=== PATIENT | female | born 1945 | race Caucasian/White ===

== ENCOUNTER 2025-03-17 19:31 | Emergency (ER) | payer MEDICARE, BC, SELFPAY ==
[2025-03-17] VITALS (11 sets, daily range): BP systolic 83–102; BP diastolic 39–79
[2025-03-17] MEDS: NSS 1000 IV (20:00)
[2025-03-17 20:04] LABS: Hematocrit 32.2 % (37.0-47.0); Hemoglobin 10.5 g/dL (12.0-16.0); Mean Corp Hgb Conc. 32.6 g/dL (33.0-37.0); Mean Corpuscular Volume 93.6 fL (81.0-99.0); Nucleated Red Blood Cells % 0 %; Platelet Count 235 10^3/uL (130-400); Red Cell Dist. Width 13.9 % (11.5-14.5)
[2025-03-17 20:14] LABS: INR 1.51; PT 18.8 Sec (11.4-14.6)
[2025-03-17 20:15] LABS: APTT 43.3 Sec (23.4-35.0)
[2025-03-17 20:25] LABS: ALT (SGPT) 12 U/L (0-35); AST (SGOT) 21 U/L (14-36); Acetaminophen 10 ug/ml (10-30); Albumin 4.2 g/dl (3.5-5.0); Alkaline Phosphatase 215 U/L (38-126); Blood Urea Nitrogen 33 mg/dl (7-17); Calcium 9.0 mg/dl (8.4-10.2); Carbon Dioxide 26 mmol/L (22-30); Chloride 104 mmol/L (98-107); Glucose 138 mg/dl (70-99); Potassium 4.5 mmol/L (3.5-5.1); Salicylate < 1.0 mg/dl (2.0-20.0); Sodium 139 mmol/L (135-145); Total Protein 6.8 g/dl (6.3-8.2); eGFR 45.48
--- NOTE | 2025-03-17 22:01 | PHANOTE ---
Addendum entered by Ana Brock 03/18/25 08:24:
CALLED PATIENT DOCTOR AT [phone] AND [facility] FOR MEDICATION LIST
Original Note:
med rec note- patient does not know her medication, patient currently seeing a new therapy doctor. spouse does not know patient medication, daughter with patient but have an older list but medication have changed
[2025-03-17 22:16] LABS: Acetaminophen < 10 ug/ml (10-30)
--- NOTE | 2025-03-17 23:06 | ED.GENMED ---
History of Present Illness
General
Chief Complaint: Overdose Intentional
Source: patient and family
Exam Limitations: none
Time Seen by Provider: 03/17/25 19:37
Nursing documentation reviewed up to this point in time: agreed with
History of Present Illness
History of Present Illness:
Note:
CHIEF COMPLAINT(S)
Suspected medication overdose and suicidal ideation.
HISTORY OF PRESENT ILLNESS
The patient is an 78-year-old female who was evaluated for a suspected intentional overdose. Upon arrival, It was found that she had taken six tablets of acetaminophen with codeine (brand name Tylenol with Codeine 3) and an unspecified amount of
alprazolam. When asked, the patient confirmed that she took these medications with the intent to harm herself. The patient expressed a desire not to live, attributable to recent emotional distress related to her , though she denied any
physical abuse by him. She verbally communicated that she did not want life-saving interventions, but was informed that her stated do not resuscitate order was not applicable under the circumstances of a suicide attempt.
CHRONIC MEDICAL CONDITIONS SIGNIFICANTLY AFFECTING CARE
The presence of psychiatric distress is noted in the context of this patients presentation, indicated by her actions and verbal expression of suicidal ideation.
SOCIAL DETERMINANTS AFFECTING HEALTH
The patient is experiencing significant emotional distress related to her relationship with her , which has contributed to her current mental health crisis. There are no indications of physical abuse, but she does not wish to live, and this
desire is concerning for her overall well-being.
PHYSICAL EXAM
- Nursing notes reviewed and vital signs reviewed.
PLAN
- Perform blood work to assess the extent of medication intake and its effects.
- Conduct comprehensive testing to evaluate patient�s current physiological and psychological state.
- Provide appropriate medical intervention despite patient�s stated do not resuscitate order due to the intent to harm herself.
DIFFERENTIAL DIAGNOSIS
The Differential Diagnosis includes, in no particular order and is not limited to:
1. Intentional medication overdose
2. Major depressive disorder
3. Adjustment disorder with depressed mood
4. Acute stress reaction
5. Substance use disorder
6. Drug toxicity
7. Anxiety disorder
8. Bipolar disorder
CARE-UPDATE
03/17/25 - 19:54
Patient likely had an overdose around 5:30 p.m., as indicated by the daughters observations. The patient sent a concerning text about distributing her wealth, prompting the daughter to call 911. The patient reports a toxic relationship with her
and prefers that he does not visit her room currently, a decision with which the daughter agrees.
Disposition:
SUMMARY OF ENCOUNTER
The patient, an 78-year-old female, presented to the emergency department for a suspected intentional overdose involving acetaminophen with codeine and alprazolam. She expressed suicidal ideation linked to emotional distress with her ,
although she denied any physical abuse. Her do not resuscitate order was not honored due to the circumstances of an attempted suicide. Medical intervention was provided to ensure her safety and wellness. Her physical and psychological assessment was
carried out, and lab work was done to determine the extent of the overdose. Acetaminophen levels returned negative. The patient is medically cleared for transfer to a psychiatric facility. She is voluntarily agreeing to this placement and remains
fully cooperative throughout the assessment.
DISPOSITION
Transfer to psychiatric facility for further management.
ASSESSMENT
Intentional medication overdose, suicidal ideation with underlying major depressive disorder likely exacerbated by relational distress.
PLAN
Transfer the patient to a psychiatric facility for further evaluation and management of her mental health status. Despite her wish to not receive life-saving interventions, due to the nature of the attempted suicide, interventions were necessary for
patient safety.
MEDICAL DECISION MAKING
-Complexity of Data Reviewed: Chronic conditions affecting care with suspected intentional medication overdose, major depressive disorder, adjustment disorder with depressed mood, acute stress reaction, substance use disorder, drug toxicity, anxiety
disorder, bipolar disorder, chronic pain management issues, personality disorder.
-Data:
Category 1: Tests and documents reviewed. Acetaminophen levels were checked and were negative.
Category 2: Managed and discussed for voluntary placement in a psychiatric facility.
DIAGNOSIS
1. Intentional medication overdose, unspecified drugs, T50.901A
2. Major depressive disorder, single episode, unspecified, F32.9
These diagnoses reflect both the immediate concerns and the underlying mental health issue requiring psychiatric intervention.
Review of Systems
Review of Systems
Allergies reviewed?: Yes
Other source history: family
All Other Systems: Not applicable
Psychiatric: Reports depression, anxiety and suicidal
Phy Exam
General Physical Exam
General Presentation: well appearing and no apparent distress
General Skin: warm and dry
General Habitus: normal
General Mental: alert
General Hydration: appears well hydrated
ENT Exam
ENT Exam: EOMI, pharynx normal, neck supple and normocephalic
Eye Exam
Eye Exam: PERRL, cornea clear and conjunctiva normal
Cardiovascular Exam
Cardiovascular Exam: regular rate/rhythm, no edema, no murmur and normal peripheral pulses
Pulmonary Exam
Pulmonary Exam: lungs clear, no respiratory distress, no rales, no crackles, no rhonchi, no stridor, no wheezing and no cough
Gastrointestinal Exam
Gastrointestinal Exam: normal bowel sounds, non tender, soft, no organomegaly, no pulsatile mass and non distended
Neurological Exam
Neurological Exam: alert, oriented x3, no motor deficits and speech normal
Musculoskeletal Exam
Musculoskeletal Exam: full ROM and no edema
Skin Exam
Skin Exam: normal color, warm/dry, no rash and no petechia
Psychiatric Exam
Psychiatric Exam: depressed and suicidal
Course
Orders/Labs/Results
Orders:
Orders
03/17/25 19:38
Electrocardiogram (*1) Stat
Reason for Study: Other
Other Reason for Exam: overdose
Crisis Consult Urgent
Reason for Consult: suidicde attempt by overdose
Bedside Glucose- Treatment ONCE
Cardiac Monitoring- Treatment ONCE
EKG- Treatment ONCE
Urinalysis Reflex To Culture Urgent
Urine Drug Abuse Screen Urgent
0.9% Sodium Chloride 1000 ml [Nss] 1,000 ml IV BOLUS
CR Chest - 2 Views Urgent
Comment:
Reason For Exam: overdose
03/17/25 19:55
Acetaminophen Urgent
Alcohol Urgent
Complete Blood Count/With Diff Urgent
Comprehensive Metabolic Panel Urgent
PTT Urgent
Prothrombin Time Urgent
Salicylate Urgent
03/17/25 21:44
Acetaminophen Urgent
Comment: repeat
Abnormal Lab Results
03/17/25 03/17/25
19:55 21:44
RBC 3.44 L 10^6/uL
(4.20-5.40)
Hgb 10.5 L g/dL
(12.0-16.0)
Hct 32.2 L %
(37.0-47.0)
MCHC 32.6 L g/dL
(33.0-37.0)
MPV 10.6 H fL
(7.4-10.4)
PT 18.8 H Sec
(11.4-14.6)
APTT 43.3 H Sec
(23.4-35.0)
BUN 33 H mg/dl
(7-17)
Creatinine 1.2 H mg/dL
(0.6-1.0)
Glucose 138 H mg/dl
(70-99)
Alkaline Phosphatase 215 H U/L
(38-126)
Salicylates < 1.0 L mg/dl
(2.0-20.0)
Acetaminophen < 10 L ug/ml
(10-30)
03/17/25 19:55
03/17/25 19:55
Vital Signs
Initial and Last Documented VS:
Initial Vital Signs
Temp Pulse Resp
98.3 F 62 16
03/17/25 19:38 03/17/25 19:38 03/17/25 19:38
Last Documented Vital Signs
Temp Pulse Resp BP Pulse Ox
98.3 F 60 16 91/49 96
03/17/25 19:38 03/17/25 21:15 03/17/25 21:15 03/17/25 21:00 03/17/25 23:10
*Radiology
Radiology exam reviewed: radiology read reviewed
*Pulse Oximetry
SaO2: 96
Oxygen Mode of Delivery: Room air
Patient hypoxic: no
*EKG
Interpreted by ED Provider?: Yes
EKG Intrepretation Date: 03/17/25
Comparison EKG: no comparison EKG present
Heart Rate: 63
Rhythm: ventricular paced
Nenzel: left axis deviation
*Insurance Sales Supervisor Interpretation
Rate: normal
Rhythm: ventricular paced
*Critical Care Note
Total Time (30-74mins, 75-104mins- exclusive of procedures): Critical care statement: (35)
ED Attending Note
-
Portions of this chart may have been created with voice recognition software.� Occasional wrong word or��sound alike� substitutions may have occurred due to the inherent limitations of voice recognition software.
Discharge Plan
Departure
Patient Disposition: Psych Facility
Date of Disposition: 03/17/25
Time of Disposition: 23:09
Patient Status:: 201
Discharge Problem:
Suicide attempt
Prescriptions:
No Action
buspirone [BuSpar] 5 mg Tablet
5 mg PO BID
sennosides [senna] 8.6 mg Tablet
8.6 mg PO BIDPRN PRN (Reason: constipation)
carvedilol [Coreg] 12.5 mg Tablet
12.5 mg PO BID
trazodone 50 mg tablet
50 mg PO HSPRN PRN (Reason: sleep)
acetaminophen-codeine 300-30 mg tablet
1 tab PO Q4HPRN PRN (Reason: severe pains)
omeprazole 40 mg capsule,delayed release(DR/EC)
40 mg PO DAILY
alprazolam [Xanax] 0.25 mg Tablet
0.25 mg PO 5/D PRN (Reason: anxiety)
Patient Comments:
pdmp patient cook pickled meat on 02/03/25 #150
amitriptyline 10 mg Tablet
10 mg PO HS
lisinopril 5 mg tablet
5 mg PO DAILY
rosuvastatin [Crestor] 10 mg Tablet
10 mg PO DAILY
Eliquis 5 mg tablet
5 mg PO BID
desvenlafaxine succinate 25 mg Tablet Extended Release 24 Hr
25 mg PO DAILY
Referrals:
Kajal Boyle DO [Family Provider, Internal Medicine]
Interventions
Interventions:
*Risk Screen - Suicide Last Done: 03/17/25 19:38
*General Assessment Last Done: 03/17/25 19:38
*Neglect/Abuse Screening Last Done: 03/17/25 19:38
*ED- Fall Risk Assessment Last Done: 03/17/25 19:45
*ED COVID-19 Vaccine History Last Done: 03/17/25 19:45
ED- Cardiac Assessment Last Done: 03/17/25 20:00
ED- Neurological Assessment Last Done: 03/17/25 20:00
ED-Psychological Assessment Last Done: 03/17/25 20:00
ED- Pulmonary Assessment Last Done: 03/17/25 20:00
Discharge Date and Time
Print Language: [email or web address]
[2025-03-17 23:23] LABS: Urine Character Cloudy (Clear)
[2025-03-18] VITALS (12 sets, daily range): BP systolic 85–105; BP diastolic 51–70
[2025-03-18 00:02] LABS: Urine White Cell >100 /HPF (0-5)
[2025-03-18 10:38] LABS: COVID-19 Antigen Negative (Negative)
[2025-03-18] MEDS: ELIQUIS 5 MG PO (10:56)
== END 2025-03-18 11:50 ==
LOC: EMR 19:31
PROVIDERS: Emergency Medicine; EMERGENCY PHYSICIAN Student in an Organized Health Care Education/Training Program; FAMILY PHYSICIAN Internal Medicine
DX: T50.992A Poisoning by other drugs, medicaments and biological substances, intentional self-harm, initial encounter (principal); F32.9 Major depressive disorder, single episode, unspecified
CPT/HCPCS: 99285; 96360; 71046; 80053; 80143; 80179; 80306; 80307; 81003; 81015; 82077; 85025; 85610; 85730; 87086; 87811; 93005